=== PATIENT | male | born 1990 | race Caucasian/White ===

== ENCOUNTER 2024-03-23 06:51 | Inpatient (IN) | payer SELFPAY ==
[2024-03-23] VITALS (10 sets, daily range): BP systolic 116–132; BP diastolic 70–85; PULSE 60–108; TEMP 36.5–36.9; O2SAT 89–96; BMI 24.4; BMI 25.7
--- NOTE | 2024-03-23 07:24 | XR_ITS ---
The [address] [address] Patient Name: YUNIER ELAINE MRN: [id number] date: 1990 Sex: M Assigned Patient Location: ER Current Patient Location: ER Accession/Order Number: [id number] Exam Date: 03/23/2024 07:35 Report Date: 03/23/2024 08:07 At the request of: TAJ ANDERSON Procedure: XR chest 1V EXAM: XR chest 1V INDICATION: SOB. COMPARISON: 11/15/2021 TECHNIQUE: Single frontal view of the chest FINDINGS: Normal cardiomediastinal contours. Normal pulmonary vasculature. Left midlung 3.0 cm nodular opacity and surrounding airspace opacities. Clear right lung. No pleural effusion or pneumothorax. No acute osseous abnormality. XR/XR chest 1V IMPRESSION: Left mid lung nodular and airspace opacities most compatible with pneumonia. Recommend short-term follow-up imaging to confirm resolution. Electronically authenticated by: OMID BLANCO Date: 03/23/2024 08:07
--- NOTE | 2024-03-23 07:24 | ECG_ITS ---
The [facility] Test Date: 2024-03-23 Pat Name: YUNIER ELAINE Department: Room: - Gender: Male [employer] Operator Helper: : 1990 Requested By: Order Number: [id number] Reading MD: FLACA MARINELLI Measurements Intervals [place] Rate: 87 P: 76 DE: 160 QRS: 65 QRSD: 80 T: 67 QT: 336 QTc: 381 Interpretive Statements 1100 Sinus rhythm [address] elevation [address] & [place] abnormality 9130 borderline ECG Compared to ECG 11/15/2021 21:02:12 ST (T wave) deviation now present Early repolarization no longer present Electronically Signed On 03-24-2024 14:06:07 EST by FLACA MARINELLI
--- NOTE | 2024-03-23 07:25 | ED_ITS ---
HPI HPI - General Adult General Chief complaint: Shortness of Breath/Dyspnea Stated complaint: SHORTNESS OF BREATH Time Seen by Provider: 03/23/24 07:24 Source: patient and family Mode of arrival: walk-in Limitations: no limitations History of Present Illness HPI narrative: 33-year-old male presents for cough and shortness of breath. He is not coughing up much phlegm. He has been sick for about a week and was seen at an urgent care. They put him on a decongestant and a steroid and tested for COVID and influenza which were negative. He has not gotten better. He had an O2 sat of 90% upon presentation. No known fever or hemoptysis. Related Data Allergies Allergy/AdvReac Type Severity Reaction Status Date / Time No Known Drug Allergies Allergy Verified 03/23/24 07:11 Opioid HPI Opioid Management Most Recent Opioid Data: No Data to Display Review of Systems ROS Narrative A ten point review of systems is negative except as noted above. PFSH PFSH Social History Little interest or pleasure in doing things: not at all Feeling down, depressed, or hopeless: not at all Exam Narrative Exam Narrative: Nurses note and vital signs reviewed and patient is not hypoxic. General: The patient appears in no acute respiratory distress and he appears moderately dyspneic Skin: Warm, dry, no pallor noted. There is no rash noted. Head: Normocephalic, atraumatic Eye: Normal conjunctiva, no drainage Ears, Nose, Mouth, and Throat: oral mucosa is moist. Nares patent. Cardiovascular: Regular Rate and Rhythm Respiratory: Bilateral rhonchi throughout Back: non-tender GI: Soft and nontender Musculoskeletal: The patient has no evidence of calf tenderness, no pitting edema, symmetrical pulses noted bilaterally Neurological: A&O, normal speech Psychiatric: Cooperative Constitutional Vital Signs, click to edit/add: Last Vital Signs Temp 98 F 03/23/24 07:08 Pulse 81 03/23/24 07:52 Resp 18 03/23/24 07:08 BP 130/85 03/23/24 07:08 Pulse Ox 96 03/23/24 07:52 O2 Del Method Nasal Cannula 03/23/24 07:52 O2 Flow Rate 2 03/23/24 07:52 Course Vital Signs Vital signs: Vital Signs Temperature 98 F 03/23/24 07:08 Pulse Rate 89 03/23/24 07:08 Respiratory Rate 18 03/23/24 07:08 Blood Pressure 130/85 03/23/24 07:08 Pulse Oximetry 92 L 03/23/24 07:08 Oxygen Delivery Method Room Air 03/23/24 07:08 Temperature 98 F 03/23/24 07:08 Pulse Rate 81 03/23/24 07:52 Respiratory Rate 18 03/23/24 07:08 Blood Pressure 130/85 03/23/24 07:08 Pulse Oximetry 96 03/23/24 07:52 Oxygen Delivery Method Nasal Cannula 03/23/24 07:52 Oxygen Delivery Flow Rate 2 03/23/24 07:52 Medical Decision Making MDM Narrative Medical decision making narrative: Pneumonia is identified on his chest x-ray. He has been hypoxemic here, running 89 to 90% on 2 L. Blood cultures were obtained and other blood work including lactic acid is pending. He was given IV Rocephin and Zithromax and is being admitted. He was also given IV Solu-Medrol and aerosol treatment. Treatment diagnosis and disposition were discussed with the patient. Differential Diagnosis Differential Diagnosis: Pneumonia, COVID, influenza, URI Lab Data Lab results reviewed: Yes I reviewed the patient's lab results Labs: Lab Results 03/23/24 Range/Units 08:38 WBC 16.1 H (4.0-11.0) 10^3/uL RBC 4.80 (4.70-6.10) 10^6/uL Hgb 14.9 (14.0-18.0) g/dL Hct 42.8 (42.0-54.0) % MCV 89.2 (80.0-94.0) fL MCH 31.0 (25.9-34.0) pg MCHC 34.8 (29.9-35.2) g/dL RDW 14.4 (11.0-15.0) % Plt Count 305 (150-450) 10^3/uL MPV 9.5 (9.5-13.5) fL Neut % (Auto) 73.7 (43.0-75.0) % Lymph % (Auto) 13.8 L (20.5-60.0) % [place] % (Auto) 8.0 (1.7-12.0) % Eos % (Auto) 1.1 (0.9-7.0) % Baso % (Auto) 0.4 (0.2-2.0) % Neut # (Auto) 11.8 H (1.4-6.5) 10^3/uL Lymph # (Auto) 2.2 (1.2-3.8) 10^3/uL [place] # (Auto) 1.3 H (0.3-0.8) 10^3/uL Eos # (Auto) 0.2 (0.0-0.7) 10^3/uL Baso # (Auto) 0.1 (0.0-0.1) 10^3/uL Abs Immat Gran (auto) 0.49 H (0.00-0.03) 10^3/uL Imm/Tot Granulo (auto) 3.0 H (0.0-0.5) % Imaging Data Chest x-ray: Radiologist's impression: ITS Impressions Chest X-Ray 03/23/24 07:24 IMPRESSION: Left mid lung nodular and airspace opacities most compatible with pneumonia. Recommend short-term follow-up imaging to confirm resolution. Electronically authenticated by: OMID BLANCO Date: 03/23/2024 08:07 ECG Data Attestation: I personally reviewed and interpreted this ECG as follows: (EKG on my interpretation shows sinus rhythm with rate of 87 and no acute change.) Critical Care Time Critical Care Time Critical Care Time: Yes Total Critical Care Time: 35 Attestation: Due to the high probability of sudden and clinically significant deterioration in the patient's condition he/she required the highest level of my preparedness to intervene urgently I provided critical care time including documentation time, medication orders and management, reevaluation, vital sign assessment, ordering and reviewing of lab tests, ordering and reviewing of x-ray studies, and admission orders. Aggregate critical care time is 35 minutes including only time during which I was engaged in work directly related to his/her care and did not include time spent treating other patients simultaneously. Discharge Plan Discharge Chief Complaint: Shortness of Breath/Dyspnea Clinical Impression: Pneumonia, Hypoxemia Patient Disposition: Admitted As Inpatient Time of Disposition Decision: 08:41 Condition: Good
[2024-03-23] MEDS: ALBUTEROL SULFATE 2.5 MG/3 ML VIAL NEB IH (07:51)
[2024-03-23] MEDS: METHYLPREDNISOLONE SOD SUCC PF 125 MG/2 ML VIAL IVP ×3 (08:09→20:12)
[2024-03-23] MEDS: CEFTRIAXONE 1,000 MG in 0.9 % SODIUM CHLORIDE 50 ML 100 MG IV (08:53)
[2024-03-23 09:08] LABS: Basophils Absolute Auto 0.1 10^3/uL (0.0-0.1); Basophils Percent Auto 0.4 % (0.2-2.0); Eosinophils Absolute Auto 0.2 10^3/uL (0.0-0.7); Eosinophils Percent Auto 1.1 % (0.9-7.0); Hematocrit 42.8 % (42.0-54.0); Hemoglobin 14.9 g/dL (14.0-18.0); Immature Granulocytes Abs Auto 0.49 10^3/uL (0.00-0.03); Lymphocytes Absolute Auto 2.2 10^3/uL (1.2-3.8); Lymphocytes Percent Auto 13.8 % (20.5-60.0); Mean Corpuscular HGB Conc 34.8 g/dL (29.9-35.2); Mean Corpuscular Volume 89.2 fL (80.0-94.0); Mean Platelet Volume 9.5 fL (9.5-13.5); Monocytes Absolute Auto 1.3 10^3/uL (0.3-0.8); Neutrophils Absolute Auto 11.8 10^3/uL (1.4-6.5); Neutrophils Percent Auto 73.7 % (43.0-75.0); Platelet Count 305 10^3/uL (150-450); Red Cell Distribution Width 14.4 % (11.0-15.0); White Blood Count 16.1 10^3/uL (4.0-11.0)
[2024-03-23 09:19] LABS: Influenza Virus A Antigen Negative; Influenza Virus B Antigen Negative; Internal Control Within Normal Limits; SARS-CoV-2 Ag NEGATIVE (NEGATIVE)
[2024-03-23 09:20] LABS: Anion Gap 11.6; Calcium 8.7 mg/dL (8.5-10.1); Carbon Dioxide 31.5 mmol/L (21.0-32.0); Chloride 103 mmol/L (98-107); Estimated GFR (African America >60 (>=60 mL/min/1.73m^2); Estimated GFR (Non-African Ame >60 (>=60 mL/min/1.73m^2); Glucose 98 mg/dL (74-106); Potassium 4.1 mmol/L (3.5-5.1); Sodium 142 mmol/L (136-145)
[2024-03-23] MEDS: AZITHROMYCIN 500 MG in 0.9 % SODIUM CHLORIDE 250 ML 250 MG IV (09:23)
[2024-03-23 09:24] LABS: Lactate/Lactic Acid 1.5 mmol/L (0.4-2.0)
--- NOTE | 2024-03-23 11:16 | P.HP_ITS ---
HPI H&P: HPI History of Present Illness Chief complaint: SOB, PNEUMONIA, HYPOXEMIA Narrative: She was seen and evaluated in the urgent care approximately 3 days ago. Tested for COVID and flu, those were negative, patient was given steroids and cough medicine, patient continued have increasing cough and shortness of breath. Presented to the emergency room here with acute hypoxic respiratory failure secondary to left lower lobe pneumonia. Resulting in acute exacerbation of COPD I saw patient up with the medical surgical floor, he was resting comfortably in bed, cough persisting throughout the evaluation. Opioid HPI Opioid Management Most Recent Pain and Opioid Data: Last Pain Assessment 03/23/24 12:31 Last ORT Total Score 15 03/23/24 10:26 03/23/24 Last ORT Risk Category High Risk 03/23/24 10:26 03/23/24 Review of Systems ROS Status of ROS 10 or more systems reviewed and unremark able except as noted in history and below Constitutional Denies: fever PFSH PFSH Medical History (Updated 03/23/24 @ 10:38 by Kaye Thompson) Asthma ?J45.909 - Unspecified asthma, uncomplicated (ICD-10) Family History (Updated 03/23/24 @ 10:44 by Kaye Thompson) Grandfather Family history of bone cancer Other Family history of Alzheimer's disease Family history of COPD (chronic obstructive pulmonary disease) Family history of leukemia Family history of lung cancer Family history of myocardial infarction Family history of prostate cancer Social History (Updated 03/23/24 @ 10:44 by Kaye Thompson) Within the past year, how often did you have a drink containing alcohol: never Within the past year, how often did you have six or more drinks on one occasion: never Score interpretation: A score less than 4 is consistent with normal alcohol consumption. Smoking status: Current every day smoker Do you use any of these nicotine containing products: other Nicotine containing products detail: a Second hand tobacco smoke exposure: Yes Non-prescribed substance use: denies use and amphetamines/methamphetamines Previous occupational history: construction Known occupational exposures/hazards: No Highest level of school completed/degree received: high school graduate Do you want help with school or training: No Are you now , , , , never or living with a partner: In a typical week, how many times do you talk on the telephone with family, friends, or neighbors: 3 or more times per week How often do you get together with friends or relatives: 3 or more times per week How often do you attend cheondoism or scientology services: never Do you belong to any clubs or organizations such as cheondoism groups unions, N[employer] or athletic groups, or school groups: no Total score: 2 Score interpretation: A score of greater than or equal to 2 indicates the lowest level of social isolation. Little interest or pleasure in doing things: not at all Feeling down, depressed, or hopeless: not at all Feel stressed/tense/nervous/anxious/difficulty sleeping: not at all Due to disability, difficulty making decisions: No Do you think of yourself as: straight/heterosexual Gender Identity: male Meds Home Medications and Allergies Home Medications ?Medication ?Instructions ?Recorded ?Confirmed ?Type No Known Home Medications 03/23/24 03/23/24 History Allergies Allergy/AdvReac Type Severity Reaction Status Date / Time No Known Drug Allergies Allergy Verified 03/23/24 07:11 Exam Constitutional Vital Signs, click to edit/add: Last Vital Signs Temp 98.4 F 03/23/24 10:26 Pulse 100 H 03/23/24 10:26 Resp 18 03/23/24 10:26 BP 132/80 03/23/24 10:26 Pulse Ox 92 L 03/23/24 10:26 O2 Del Method Nasal Cannula 03/23/24 10:26 O2 Flow Rate 2 03/23/24 10:26 Documenting provider has reviewed patient's vital signs: yes Common normals: apparent distress (Respiratory distress secondary to cough) Chest Common normals: inspection of chest normal Respiratory Common normals: abnormal respiratory effort (Secondary to cough) Effort & inspection: actively coughing Auscultation: rhonchi, wheezes and egophony (Left middle lobe) GI Common normals: Normal to inspection, nondistended, normoactive bowel sounds present Back & Pelvis Common normals: no CVA tenderness Extremity Common normals: normal to inspection Results Labs Labs: Short CBC 03/23/24 Range/Units 08:38 WBC 16.1 H (4.0-11.0) 10^3/uL Hgb 14.9 (14.0-18.0) g/dL Hct 42.8 (42.0-54.0) % Plt Count 305 (150-450) 10^3/uL BMP 03/23/24 08:38 Sodium 142 Potassium 4.1 Chloride 103 Carbon Dioxide 31.5 BUN 23.0 H Creatinine 0.96 Glucose 98 Calcium 8.7 Assessment and Plan Assessment and Plan (1) Hypoxemia: (2) Pneumonia: Plan Admission findings: Acute hypoxia with O2 sat of 86%, sinus tachycardia's, leukocytosis secondary to left lower lobe pneumonia causing an acute exacerbation of COPD Acute exacerbation of COPD secondary to left lower lobe pneumonia-aerosols, steroids, antibiotics. Try to obtain sputum culture. Sinus tachycardia likely secondary to above-monitor closely Admission status: Patient treated with IV antibiotics, aerosols, steroids, he does have significant hypoxia will make patient inpatient status secondary to the severity of his hypoxia. Failed outpatient treatment. Medically necessary treatment likely to span 2 midnights.
--- NOTE | 2024-03-23 14:25 | RESP.RT ---
done in ER see documentation from earlier today
--- NOTE | 2024-03-23 14:28 | RESP.RT ---
to be done soon
[2024-03-23] MEDS: ACETAMINOPHEN 500 MG TABLET 1000 MG PO (17:38)
[2024-03-24] VITALS (27 sets, daily range): BP systolic 129–151; BP diastolic 79–100; PULSE 84–121; TEMP 36.6–37.1; O2SAT 86–100
[2024-03-24] MEDS: METHYLPREDNISOLONE SOD SUCC PF 125 MG/2 ML VIAL IVP ×4 (01:33→20:44)
[2024-03-24] MEDS: ALBUTEROL SULFATE 2.5 MG/3 ML VIAL NEB IH ×5 (03:56→20:34)
[2024-03-24] MEDS: BENZONATATE 100 MG CAPSULE 200 MG PO (04:33)
[2024-03-24] MEDS: ACETAMINOPHEN 500 MG TABLET 1000 MG PO ×2 (04:34→14:40)
--- NOTE | 2024-03-24 06:23 | CT_ITS ---
The [address] [address] Patient Name: YUNIER ELAINE MRN: [id number] date: 1990 Sex: M Assigned Patient Location: ICU Current Patient Location: ICU Accession/Order Number: [id number] Exam Date: 03/24/2024 07:00 Report Date: 03/24/2024 07:41 At the request of: FLACA MARINELLI Procedure: CT angio chest EXAM: CT angio chest , 03/24/2024 HISTORY: acute hypoxia COMPARISON: Previous x-rays from 03/23/2024 and 2021. TECHNIQUE: CT scan of the chest was performed following are mL of intravenous Omnipaque 350 iodine contrast with angiogram protocol. Coronal, sagittal including MIP and 3-D constructions were performed. Dose reduction techniques were achieved by using automated exposure control and/or adjustment of mA and/or kV according to patient size and/or use of iterative reconstruction technique. FINDINGS: The main pulmonary artery, right and left pulmonary arteries, bilateral lobar and segmental pulmonary arteries are patent and show no filling defect to suggest pulmonary thromboembolism. The lung windows demonstrate patchy infiltrates in the lingula. Minimal bilateral dependent atelectasis. The images are partially limited by motion/breathing artifacts. Bilateral mild prominence of the bronchovascular markings, with lower lobe bronchial wall thickening. The central tracheobronchial airways are patent. The mediastinal windows demonstrate mild enlargement of the hilar lymph nodes bilaterally, likely reactive. Patent thoracic aorta and great vessels. No pleural or pericardial effusion. Unremarkable thyroid gland. Esophagus is nondilated. The bone windows demonstrate no acute osseous findings. Scans through the upper abdomen are unremarkable. CT/CT angio chest IMPRESSION: 1. Infiltrate in the lingula, and bilateral bronchial wall thickening and plugging in the lower lobes with basal atelectasis. 2. Mild enlargement of bilateral hilar lymph nodes, likely reactive. Electronically authenticated by: JEREMIAS BLAKE Date: 03/24/2024 07:41
[2024-03-24 06:52] LABS: Hematocrit 43.9 % (42.0-54.0); Hemoglobin 14.6 g/dL (14.0-18.0); Mean Corpuscular HGB Conc 33.3 g/dL (29.9-35.2); Mean Corpuscular Hemoglobin 28.5 pg (25.9-34.0); Mean Corpuscular Volume 85.6 fL (80.0-94.0); Mean Platelet Volume 9.1 fL (9.5-13.5); Platelet Count 345 10^3/uL (150-450); Red Blood Count 5.13 10^6/uL (4.70-6.10); Red Cell Distribution Width 13.7 % (11.0-15.0); White Blood Count 29.8 10^3/uL (4.0-11.0)
[2024-03-24 07:05] LABS: Anion Gap 13.3; BUN Creatinine Ratio 17.8; Carbon Dioxide 29.1 mmol/L (21.0-32.0); Chloride 103 mmol/L (98-107); Estimated GFR (African America >60 (>=60 mL/min/1.73m^2); Estimated GFR (Non-African Ame >60 (>=60 mL/min/1.73m^2); Glucose 167 mg/dL (74-106); Potassium 4.4 mmol/L (3.5-5.1); Sodium 141 mmol/L (136-145)
[2024-03-24 07:13] LABS: Lymphocytes Absolute Manual 1.49 10^3/uL (1.20-3.80); Metamyelocytes Absolute Manual 0.29; Monocytes Absolute Manual 1.19 10^3/uL (0.30-0.80); Segmented Neut Absolute Manual 26.82 10^3/uL (1.4-6.5)
[2024-03-24 07:27] LABS: Alanine Aminotransferase 36 U/L (16-63); Albumin Globulin Ratio 0.7; Albumin Level 2.8 g/dL (3.4-5.0); Alkaline Phosphatase 93 U/L (46-116); Aspartate Amino Transferase 14 U/L (15-37); Bilirubin Direct 0.1 mg/dL (0.0-0.2); Bilirubin Total 0.2 mg/dL (0.2-1.0); Globulin 4.2 g/dL
--- NOTE | 2024-03-24 07:28 | PC.NURSE ---
Patient was transferred to ICU by bed and his belongings. Patient is on Vaportherm. Report given to Christiane KHALIL.
--- NOTE | 2024-03-24 07:35 | PC.NURSE ---
Patient was transferred to ICU by bed with his belongings. RT placed Patient on Vapothem. Report given to Christiane KHALIL
[2024-03-24 07:42] LABS: ABG PCO2 41.3 mmHg (35.0-45.0); Allen Test POSITIVE (POSITIVE); Base Excess ABG 4.9 mmol/L (-2.0-2.0); Fractionated Inspired Oxygen 50 %; HCO3 ABG 28.9 mmol/L (22.0-26.0); Liters per Minute 40; O2 Mode VAPO; Oxygen Saturation ABG 92.1 %; pH ABG 7.452 (7.350-7.450)
[2024-03-24 07:43] LABS: PO2 ABG 58.5 mmHg (80.0-100.0); Puncture Site R.RAD
[2024-03-24] MEDS: AZITHROMYCIN 500 MG in 0.9 % SODIUM CHLORIDE 250 ML 250 MG IV (08:57)
[2024-03-24] MEDS: PIPERACILLIN SODIUM/TAZOBACTAM 3.375 GM in 0.9 % SODIUM CHLORIDE 50 ML IV ×2 (09:59→17:21)
--- NOTE | 2024-03-24 11:45 | P.PN_ITS ---
Progress Note: Subjective Subjective Interval history: Patient was significant deterioration overnight. Had increasing shortness of breath and required Vapotherm. Transferred back to the intensive care unit due to deterioration status. Exam Constitutional Vital Signs, click to edit/add: Last Vital Signs Temp 97.9 F 03/24/24 05:55 Pulse 110 H 03/24/24 10:05 Resp 18 03/24/24 06:31 BP 148/86 H 03/24/24 05:55 Pulse Ox 96 03/24/24 08:09 O2 Del Method Vapotherm 03/24/24 08:09 O2 Flow Rate 40 03/24/24 08:09 FiO2 50 03/24/24 08:09 Documenting provider has reviewed patient's vital signs: yes Common normals: apparent distress (Mild to moderate respiratory distress) Chest Common normals: inspection of chest abnormal Respiratory Common normals: abnormal respiratory effort (Secondary to cough) and use of accessory muscles Effort & inspection: actively coughing and uses accessory muscles Auscultation: rhonchi (Worse than previous day.), wheezes and egophony (Now in bilateral lower lobes) Cardio Common normals: regular rhythm; irregular rate Rate: tachycardic GI Common normals: Normal to inspection, nondistended, normoactive bowel sounds present Back & Pelvis Common normals: no CVA tenderness Extremity Common normals: normal to inspection Progress Note: Objective Labs Labs: Short CBC 03/24/24 Range/Units 06:46 WBC 29.8 H (4.0-11.0) 10^3/uL Hgb 14.6 (14.0-18.0) g/dL Hct 43.9 (42.0-54.0) % Plt Count 345 (150-450) 10^3/uL BMP 03/24/24 06:46 Sodium 141 Potassium 4.4 Chloride 103 Carbon Dioxide 29.1 BUN 18.0 Creatinine 1.01 Glucose 167 H Calcium 9.0 Liver Function 03/24/24 Range/Units 06:46 Total Bilirubin 0.2 (0.2-1.0) mg/dL Direct Bilirubin 0.1 (0.0-0.2) mg/dL AST 14 L (15-37) U/L ALT 36 (16-63) U/L Alkaline Phosphatase 93 (46-116) U/L Albumin 2.8 L (3.4-5.0) g/dL Progress Note: A&P Assessment and Plan (1) Hypoxemia: (2) Pneumonia: Plan Admission findings: Acute hypoxia with O2 sat of 86%, sinus tachycardia's, leukocytosis secondary to left lower lobe pneumonia causing an acute exacerbation of COPD Acute exacerbation of COPD secondary to left lower lobe pneumonia-leukocytosis deteriorated, condition deteriorated with now with acute hypoxic respiratory failure requiring upper level doses of supplemental oxygen via Vapotherm. CTA completed which did not show any pulmonary embolism but bilateral lower lobe infiltrates and moderate mucus production. Continue with steroids, adjusted antibiotics. Sputum culture was obtained. Will try vest treatments. Still suspecting progression of pneumonia despite initiation of treatment, other considerations would be ARDS early Sinus tachycardia likely secondary to above-still elevated further today. Again likely secondary to the above EKG with inferior wall mild ST elevation-will check patient's BNP and high- sensitivity troponin. Insomnia-try doxepin, try to limit respiratory suppression Hyperglycemia secondary to steroids-continue steroids. Admission status: Patient treated with IV antibiotics, aerosols, steroids, he does have significant hypoxia will make patient inpatient status secondary to the severity of his hypoxia. Failed outpatient treatment. Medically necessary treatment likely to span 2 midnights. ?
[2024-03-24 14:39] LABS: Troponin I High Sensitivity 4.1 pg/mL (4.0-76.1)
[2024-03-24] MEDS: GUAIFENESIN 600 MG TAB.ER.12H 1200 MG PO ×2 (15:00→20:44)
[2024-03-24] MEDS: CALCIUM CARBONATE 500 MG (200MG ELEMENTAL) TAB CHEW PO (21:28)
--- NOTE | 2024-03-24 23:22 | PC.NURSE ---
This RN took over for Sally KHALIL at 2300. Introduced self to patient, checked VS and performed an assessment. Pt on 40L 40% Vapotherm. Pt declines needs at this time. No distress noted. Bed in low position with wheels locked. Call light within reach.
[2024-03-25] VITALS (35 sets, daily range): BP systolic 121–136; BP diastolic 80–89; PULSE 66–112; TEMP 36.6–36.8; O2SAT 90–98
[2024-03-25] MEDS: METHYLPREDNISOLONE SOD SUCC PF 125 MG/2 ML VIAL IVP (01:04)
[2024-03-25] MEDS: PIPERACILLIN SODIUM/TAZOBACTAM 3.375 GM in 0.9 % SODIUM CHLORIDE 50 ML IV ×3 (01:06→17:02)
[2024-03-25 06:00] LABS: Hematocrit 37.3 % (42.0-54.0); Hemoglobin 13.9 g/dL (14.0-18.0); Mean Corpuscular HGB Conc 37.3 g/dL (29.9-35.2); Mean Corpuscular Hemoglobin 33.4 pg (25.9-34.0); Mean Corpuscular Volume 89.7 fL (80.0-94.0); Mean Platelet Volume 9.9 fL (9.5-13.5); Platelet Count 345 10^3/uL (150-450); Red Blood Count 4.16 10^6/uL (4.70-6.10); Red Cell Distribution Width 15.2 % (11.0-15.0)
[2024-03-25 06:13] LABS: White Blood Count 36.7 10^3/uL (4.0-11.0)
[2024-03-25 06:27] LABS: Lymphocytes Absolute Manual 1.46 10^3/uL (1.20-3.80); Monocytes Absolute Manual 0.73 10^3/uL (0.30-0.80); Segmented Neut Absolute Manual 34.49 10^3/uL (1.4-6.5)
[2024-03-25 06:28] LABS: Anion Gap 13.9; BUN Creatinine Ratio 22.7; Calcium 9.2 mg/dL (8.5-10.1); Carbon Dioxide 27.5 mmol/L (21.0-32.0); Chloride 103 mmol/L (98-107); Estimated GFR (African America >60 (>=60 mL/min/1.73m^2); Estimated GFR (Non-African Ame >60 (>=60 mL/min/1.73m^2); Glucose 159 mg/dL (74-106); Potassium 4.4 mmol/L (3.5-5.1); Sodium 140 mmol/L (136-145)
[2024-03-25] MEDS: ALBUTEROL SULFATE 2.5 MG/3 ML VIAL NEB IH (07:12)
--- NOTE | 2024-03-25 07:59 | P.PLCN_ITS ---
History of Present Illness History of Present Illness Consult date: 03/25/24 Reason for consult: pneumonia Chief complaint: SOB, PNEUMONIA, HYPOXEMIA Narrative: 33yo male presents with dyspnea. Patient has a history of asthma which she claims he outgrew. He is a 1 pack-a-day smoker for the past 18 years. States over the past week, he developed worsening breathing. He was more short of breath, chest congestion but difficulty expectorating at times. No hemoptysis. Also felt feverish (never checked his temperatures), chills, and general fatigue. He believes he was ill for a week before; he admitted going to an urgent care center and was prescribed prednisone which helped some. His symptoms worsening came to the hospital. Chest CT noted no pulmonary embolism but a lingular infiltrate along with bilateral lower lobe mucus plugging and bilateral hilar lymphadenopathy suspected to be reactive. He is tachycardic with leukocytosis on admission requiring supplemental oxygen. Presentation is consistent with severe sepsis. COVID and influenza were negative. Overall, he states he is feeling better. Review of Systems ROS Status of ROS 10 or more systems reviewed and unremark able except as noted in history and below [facility] Medical History (Updated 03/25/24 @ 08:04 by Jonathan Salomon DO) Asthma ?J45.909 - Unspecified asthma, uncomplicated (ICD-10) Family History (Updated 03/23/24 @ 10:44 by Kaye Thompson) Grandfather Family history of bone cancer Other Family history of Alzheimer's disease Family history of COPD (chronic obstructive pulmonary disease) Family history of leukemia Family history of lung cancer Family history of myocardial infarction Family history of prostate cancer Social History (Updated 03/23/24 @ 13:47 by Daniel Goss MD) Within the past year, how often did you have a drink containing alcohol: never Within the past year, how often did you have six or more drinks on one occasion: never Score interpretation: A score less than 4 is consistent with normal alcohol consumption. Smoking status: Current every day smoker Do you use any of these nicotine containing products: other Nicotine containing products detail: a Second hand tobacco smoke exposure: Yes Non-prescribed substance use: denies use and amphetamines/methamphetamines Previous occupational history: construction Known occupational exposures/hazards: No Highest level of school completed/degree received: high school graduate Do you want help with school or training: No Are you now , , , , never or living with a partner: In a typical week, how many times do you talk on the telephone with family, friends, or neighbors: 3 or more times per week How often do you get together with friends or relatives: 3 or more times per week How often do you attend mu-ism or pentecostal services: never Do you belong to any clubs or organizations such as mu-ism groups unions, fraternal or athletic groups, or school groups: no Total score: 2 Score interpretation: A score of greater than or equal to 2 indicates the lowest level of social isolation. Little interest or pleasure in doing things: not at all Feeling down, depressed, or hopeless: not at all Feel stressed/tense/nervous/anxious/difficulty sleeping: not at all Due to disability, difficulty making decisions: No Do you think of yourself as: straight/heterosexual Gender Identity: male Meds Home Medications and Allergies Home Medications ?Medication ?Instructions ?Recorded ?Confirmed ?Type No Known Home Medications 03/23/24 03/23/24 History Allergies Allergy/AdvReac Type Severity Reaction Status Date / Time No Known Drug Allergies Allergy Verified 03/23/24 07:11 Exam Constitutional Vital Signs, click to edit/add: Last Vital Signs Temp 98 F 03/25/24 05:00 Pulse 89 03/25/24 07:14 Resp 22 H 03/25/24 07:14 BP 133/81 03/25/24 05:00 Pulse Ox 95 03/25/24 07:14 O2 Del Method Nasal Cannula 03/25/24 07:14 O2 Flow Rate 4 03/25/24 07:14 FiO2 40 03/25/24 05:00 Documenting provider has reviewed patient's vital signs: yes Other: Patient appears ill in my opinion; diaphoretic, tachycardic, mild tachypnea though does not appear in respiratory distress HENMT Other: Wearing O2 per nasal cannula Chest Common normals: inspection of chest normal and palpation of chest normal Respiratory Other: Mild tachypnea with rate 22, but does not appear in distress. Breaths are shallow. He does have some bibasilar crackles more on the left than the right. No wheezes. Cardio Other: Tachycardic with a regular rhythm GI Inspection: normal to inspection Extremity Common normals: normal to inspection Neuro Motor exam: no tremor noted and no fasciculations Psych Attitude: calm Activity/motor behavior: appropriate eye contact Speech: normal speech Results Laboratory Findings ABG, PT/INR, D-dimer: ABG ABG pH 7.452 (7.350-7.450) H 03/24/24 07:35 ABG pCO2 41.3 mmHg (35.0-45.0) 03/24/24 07:35 ABG pO2 58.5 mmHg (80.0-100.0) L* 03/24/24 07:35 ABG O2 Saturation 92.1 % 03/24/24 07:35 Abnormal lab findings: Abnormal Labs 03/23/24 03/24/24 03/24/24 08:38 06:46 07:35 WBC 16.1 H 29.8 H RBC Hgb Hct MCHC RDW MPV 9.1 L Lymph % (Auto) 13.8 L Neut # (Auto) 11.8 H [place] # (Auto) 1.3 H Abs Immat Gran (auto) 0.49 H Seg Neuts % (Manual) 90.0 H Lymphocytes % (Manual) 5.0 L Eosinophils % (Manual) 0.0 L Basophils % (Manual) 0.0 L Imm/Tot Granulo (auto) 3.0 H Neutrophils # (Manual) 26.82 H Monocytes # (Manual) 1.19 H ABG pH 7.452 H ABG pO2 58.5 L* ABG HCO3 28.9 H ABG Base Excess 4.9 H BUN 23.0 H Glucose 167 H AST 14 L Albumin 2.8 L 03/25/24 04:57 WBC 36.7 H* RBC 4.16 L Hgb 13.9 L Hct 37.3 L MCHC 37.3 H RDW 15.2 H MPV Lymph % (Auto) Neut # (Auto) [place] # (Auto) Abs Immat Gran (auto) Seg Neuts % (Manual) 94.0 H Lymphocytes % (Manual) 4.0 L Eosinophils % (Manual) 0.0 L Basophils % (Manual) 0.0 L Imm/Tot Granulo (auto) Neutrophils # (Manual) 34.49 H Monocytes # (Manual) ABG pH ABG pO2 ABG HCO3 ABG Base Excess BUN 22.0 H Glucose 159 H AST Albumin Assessment and Plan Assessment and Plan (1) Community acquired pneumonia: Assessment and Plan: 1. Community-acquired pneumonia, nidus is in the lingula, with associated bilateral hilar lymphadenopathy. Overall presentation appears consistent with bacterial pneumonia. Suspect this was preceded by a viral pneumonia 2 weeks ago per his history. Patient seems to be clinically improving, though still remains ill. Will need follow-up imaging to document stability. 2. Severe sepsis secondary to the above. Presentation is consistent with severe sepsis with tachycardia tachypnea leukocytosis and hypoxic respiratory failure. Continue supportive care. 3. Acute exacerbation of mild intermittent asthma. Patient was previously asymptomatic from asthma standpoint, but this acute illness has provoked underlying asthma. Continue with bronchodilators, changing to scheduled; also changing albuterol to leave albuterol secondary to the consistent tachycardia (patient was approaching 120 this morning on telemetry) and add ipratropium for synergy. May need to consider discharge on ICS/LABA such as Symbicort for short-term use. 4. Acute hypoxic respiratory failure. Secondary to above. He still is requiring 4 L minute of supplemental O2. Baseline is room air. 4. Cigarette/nicotine abuse. Patient smokes 1 pack a day for the past 18 years. Patient was counseled on importance of smoking cessation. Qualifiers: Laterality: left Lung location: upper lobe of lung Qualified Code(s): J18.9 - Pneumonia, unspecified organism Plan Patient states he is feeling better at this current time. I am going out of town this following week. If the patient decompensates, he will need to be transferred to a tertiary care center for pulmonary management.
--- NOTE | 2024-03-25 08:34 | P.PN_ITS ---
Progress Note: Subjective Subjective Interval history: Feels better with his breathing than previous day. Able to be weaned down to 4 L by nasal cannula as opposed to the Vapotherm from yesterday morning Exam Constitutional Vital Signs, click to edit/add: Last Vital Signs Temp 98 F 03/25/24 05:00 Pulse 89 03/25/24 07:14 Resp 22 H 03/25/24 07:14 BP 133/81 03/25/24 05:00 Pulse Ox 95 03/25/24 07:14 O2 Del Method Nasal Cannula 03/25/24 07:14 O2 Flow Rate 4 03/25/24 07:14 FiO2 40 03/25/24 05:00 Documenting provider has reviewed patient's vital signs: yes Common normals: apparent distress (Mild to moderate respiratory distress) Chest Common normals: inspection of chest abnormal Respiratory Common normals: no use of accessory muscles; abnormal respiratory effort (Secondary to cough) Effort & inspection: actively coughing; does not use accessory muscles Auscultation: rhonchi (Worse than previous day.); no wheezes and no egophony (Egophony resolved) Cardio Common normals: regular rhythm; irregular rate Rate: tachycardic GI Common normals: Normal to inspection, nondistended, normoactive bowel sounds present Back & Pelvis Common normals: no CVA tenderness Extremity Common normals: normal to inspection Progress Note: Objective Labs Labs: Short CBC 03/25/24 Range/Units 04:57 WBC 36.7 H* (4.0-11.0) 10^3/uL Hgb 13.9 L (14.0-18.0) g/dL Hct 37.3 L (42.0-54.0) % Plt Count 345 (150-450) 10^3/uL BMP 03/25/24 04:57 Sodium 140 Potassium 4.4 Chloride 103 Carbon Dioxide 27.5 BUN 22.0 H Creatinine 0.97 Glucose 159 H Calcium 9.2 Progress Note: A&P Assessment and Plan (1) Community acquired pneumonia: Qualifiers: Laterality: left Lung location: upper lobe of lung Qualified Code(s): J18.9 - Pneumonia, unspecified organism (2) Hypoxemia: (3) Pneumonia: Plan Admission findings: Acute hypoxia with O2 sat of 86%, sinus tachycardia's, leukocytosis secondary to left lower lobe pneumonia causing an acute exacerbation of COPD Acute exacerbation of COPD secondary to left lower lobe pneumonia-leukocytosis elevated again today. Will discuss care with pulmonology. Overall is improved today. Sinus tachycardia likely secondary to above-still elevated further today. Adjusting medications. EKG with inferior wall mild ST elevation-BNP and high-sensitivity troponin were normal Insomnia-try doxepin, try to limit respiratory suppression Hyperglycemia secondary to steroids-continue steroids. Admission status: Patient treated with IV antibiotics, aerosols, steroids, he does have significant hypoxia will make patient inpatient status secondary to the severity of his hypoxia. Failed outpatient treatment. Medically necessary treatment likely to span 2 midnights. ?
--- NOTE | 2024-03-25 08:45 | CM.NOTE ---
Rounds made with Dr. Goss, pt still requiring oxygen at this time. No discharge to home. Dr. Salomon will consult for further recommendations.
--- NOTE | 2024-03-25 08:49 | CM.NOTE ---
Discussed with pt about self pay. Pt is true self pay. Pt verbalizes he received paperwork and has filled out for billing office.
[2024-03-25] MEDS: METHYLPREDNISOLONE SOD SUCC PF 125 MG/2 ML VIAL 60 MG IVP ×3 (09:13→19:42)
[2024-03-25] MEDS: GUAIFENESIN 600 MG TAB.ER.12H 1200 MG PO ×2 (09:13→19:42)
[2024-03-25] MEDS: AZITHROMYCIN 500 MG in 0.9 % SODIUM CHLORIDE 250 ML 250 MG IV (09:14)
--- NOTE | 2024-03-25 10:31 | SWNOTE1 ---
Pt is on oxygen at hospital, 4 liters. Does not wear home oxygen. Pt does not have insurance and it will be out of pocket.
[2024-03-25] MEDS: IPRATROPIUM BROMIDE 0.5 MG/2.5 ML VIAL.NEB IH ×3 (12:00→20:24)
[2024-03-25] MEDS: LEVALBUTEROL HCL 0.63 MG/3 ML VIAL.NEB IH ×3 (12:00→20:24)
--- NOTE | 2024-03-25 20:24 | RESP.RT ---
Pt refused vest at this time. Pt stated he was very tired. PEP done.
[2024-03-26] VITALS (11 sets, daily range): BP systolic 123–137; BP diastolic 79–105; PULSE 70–105; TEMP 36.6–36.8; O2SAT 91–96
[2024-03-26] MEDS: METHYLPREDNISOLONE SOD SUCC PF 125 MG/2 ML VIAL 60 MG IVP ×2 (03:06→08:19)
[2024-03-26] MEDS: PIPERACILLIN SODIUM/TAZOBACTAM 3.375 GM in 0.9 % SODIUM CHLORIDE 50 ML IV (03:06)
--- NOTE | 2024-03-26 04:31 | RESP.RT ---
pt refused HHN at this time
[2024-03-26 05:07] LABS: Basophils Absolute Auto 0.1 10^3/uL (0.0-0.1); Basophils Percent Auto 0.2 % (0.2-2.0); Hematocrit 39.7 % (42.0-54.0); Hemoglobin 13.3 g/dL (14.0-18.0); Immature Granulocytes Abs Auto 1.21 10^3/uL (0.00-0.03); Lymphocytes Absolute Auto 1.5 10^3/uL (1.2-3.8); Lymphocytes Percent Auto 5.1 % (20.5-60.0); Mean Corpuscular HGB Conc 33.5 g/dL (29.9-35.2); Mean Corpuscular Hemoglobin 28.9 pg (25.9-34.0); Mean Corpuscular Volume 86.3 fL (80.0-94.0); Mean Platelet Volume 9.7 fL (9.5-13.5); Monocytes Absolute Auto 1.4 10^3/uL (0.3-0.8); Monocytes Percent Auto 4.5 % (1.7-12.0); Neutrophils Percent Auto 86.2 % (43.0-75.0); Platelet Count 339 10^3/uL (150-450); Red Cell Distribution Width 14.3 % (11.0-15.0)
[2024-03-26 05:18] LABS: Anion Gap 12.3; BUN Creatinine Ratio 25.8; Calcium 8.7 mg/dL (8.5-10.1); Carbon Dioxide 28.9 mmol/L (21.0-32.0); Chloride 103 mmol/L (98-107); Estimated GFR (African America >60 (>=60 mL/min/1.73m^2); Estimated GFR (Non-African Ame >60 (>=60 mL/min/1.73m^2); Glucose 135 mg/dL (74-106); Potassium 4.2 mmol/L (3.5-5.1); Sodium 140 mmol/L (136-145)
[2024-03-26 05:35] LABS: White Blood Count 30.2 10^3/uL (4.0-11.0)
--- NOTE | 2024-03-26 05:41 | P.DS_ITS ---
DS: Providers Provider Date of admission: 03/23/24 10:11 Primary care physician: Non-Staff Physician, Consults: 03/23/24 11:12 Consult to Pharmacy Routine Consulting Provider: Reason for consultation: Please [place] me when Med Rec is Updated Has provider been notified: No 03/24/24 17:00 Consult to Pulmonology Routine Consulting Provider: Jonathan Saloomn Reason for consultation: failed tx pneumonia Has provider been notified: Yes DS: Diagnosis Discharge Diagnosis (1) Community acquired pneumonia: Qualifiers: Laterality: left Lung location: upper lobe of lung Qualified Code(s): J18.9 - Pneumonia, unspecified organism (2) Hypoxemia: (3) Pneumonia: Plan Admission findings: Acute hypoxia with O2 sat of 86%, sinus tachycardia's, leukocytosis secondary to left lower lobe pneumonia causing an acute exacerbation of COPD Acute exacerbation of COPD secondary to left lower lobe pneumonia-improving at the time of discharge Sinus tachycardia likely secondary to above-resolved at the time of discharge EKG with inferior wall mild ST elevation-BNP and high-sensitivity troponin were normal Insomnia-try doxepin, try to limit respiratory suppression Hyperglycemia secondary to steroids-continue steroids. Admission status: Patient treated with IV antibiotics, aerosols, steroids, he does have significant hypoxia will make patient inpatient status secondary to the severity of his hypoxia. Failed outpatient treatment. Medically necessary treatment likely to span 2 midnights. DS: Summary Hospital Course Hospital Course: Patient was seen in the outpatient setting and treated for acute bronchitis. Patient condition deteriorated had increasing cough and shortness of breath and presented to the emergency room found to have acute hypoxic respiratory failure requiring supplemental oxygen. Patient was placed on aerosol treatment steroids and antibiotics. The following morning his condition deteriorated significantly requiring Vapotherm. He was transferred back to the intensive care unit. ABG was completed with not showing significant CO2 retention. No major shifts in his acid-base balance. Antibiotics were changed at that point in time. Since that time he is improved. Able to wean off of supplemental oxygen. His tachycardia is improved. Did well overnight. The oxygen is weaned off overnight. And maintaining O2 sats greater than 90%. At this point he is medically improved. He can be discharged to home in improving condition. Medications see this. Follow-up with me in the office this week. Status at Discharge Overall status at discharge: patient is not back to baseline Time Spent with Patient Time attestation: Total time spent providing and/or coordinating discharge services: Time spent: greater than 30 minutes Exam Constitutional Vital Signs, click to edit/add: Last Vital Signs Temp 98.2 F 03/26/24 04:38 Pulse 70 03/26/24 04:40 Resp 18 03/26/24 04:38 BP 123/80 03/26/24 04:38 Pulse Ox 92 L 03/26/24 04:38 O2 Del Method Room Air 03/26/24 04:38 O2 Flow Rate 2 03/25/24 16:37 FiO2 40 03/25/24 05:00 Documenting provider has reviewed patient's vital signs: yes Common normals: apparent distress (Mild to moderate respiratory distress) Chest Common normals: inspection of chest abnormal Respiratory Common normals: no use of accessory muscles; abnormal respiratory effort (Secondary to cough) Effort & inspection: actively coughing; does not use accessory muscles Auscultation: rhonchi (Worse than previous day.); no wheezes and no egophony (Egophony resolved) Cardio Common normals: regular rhythm; irregular rate Rate: tachycardic GI Common normals: Normal to inspection, nondistended, normoactive bowel sounds present Back & Pelvis Common normals: no CVA tenderness Extremity Common normals: normal to inspection DS: Data Data Completed and Pending Labs on day of discharge: Labs from last 24 hours 03/26/24 03/25/24 03/24/24 04:50 04:57 06:46 WBC 30.2 H* 36.7 H* RBC 4.60 L 4.16 L Hgb 13.3 L 13.9 L Hct 39.7 L 37.3 L MCV 86.3 89.7 MCH 28.9 33.4 MCHC 33.5 37.3 H RDW 14.3 15.2 H Plt Count 339 345 MPV 9.7 9.9 Neut % (Auto) 86.2 H Lymph % (Auto) 5.1 L [place] % (Auto) 4.5 Eos % (Auto) 0.0 L Baso % (Auto) 0.2 Neut # (Auto) 26.0 H Lymph # (Auto) 1.5 [place] # (Auto) 1.4 H Eos # (Auto) 0.0 Baso # (Auto) 0.1 Abs Immat Gran (auto) 1.21 H Seg Neuts % (Manual) 94.0 H Lymphocytes % (Manual) 4.0 L Monocytes % (Manual) 2.0 Eosinophils % (Manual) 0.0 L Basophils % (Manual) 0.0 L Imm/Tot Granulo (auto) 4.0 H Neutrophils # (Manual) 34.49 H Lymphocytes # (Manual) 1.46 Monocytes # (Manual) 0.73 Eosinophils # (Manual) 0.00 Basophils # (Manual) 0.00 Sodium 140 140 Potassium 4.2 4.4 Chloride 103 103 Carbon Dioxide 28.9 27.5 Anion Gap 12.3 13.9 BUN 23.0 H 22.0 H Creatinine 0.89 0.97 Est GFR ( Amer) >60 >60 Est GFR (Non-Af Amer) >60 >60 BUN/Creatinine Ratio 25.8 22.7 Glucose 135 H 159 H Calcium 8.7 9.2 Total Bilirubin 0.2 Direct Bilirubin 0.1 AST 14 L ALT 36 Alkaline Phosphatase 93 Total Protein 7.0 Albumin 2.8 L Globulin 4.2 Albumin/Globulin Ratio 0.7 Preliminary micro results at discharge 03/23/24 08:44 Blood Culture Result 2 - Preliminary Blood NO GROWTH AT 36-48 HOURS. FINAL TO FOLLOW. 03/23/24 08:38 Blood Culture Result 1 - Preliminary Blood NO GROWTH AT 36-48 HOURS. FINAL TO FOLLOW. 03/24/24 04:30 Lower Respiratory Culture - Preliminary Sputum - Expectorated Sputum Discharge Plan Discharge Disposition: Home, Self-Care Condition: Good Discharge Medications: New prednisone 10 mg tablet 50 mg PO DAILY Qty: 47 0RF Rx Instructions: 5/day for 3 days. 4/day for 3 days, 3/day for 3 days, 2/day for 3 days, 1/day for 3 days, 1/2 /day for 4 days benzonatate 100 mg Capsule 200 mg PO Q8H PRN (Reason: Cough) Qty: 20 0RF amoxicillin-pot clavulanate 875-125 mg tablet 1 tab PO BID Qty: 20 0RF albuterol sulfate [Ventolin HFA] 90 mcg/actuation HFA aerosol inhaler 2 inh inhalation Q6H PRN (Reason: shortness of breath or wheezing) Qty: 8.5 11RF Print Language: Armenian Patient Instructions: Pneumonia (DC) Forms: Portal Instructions Follow Up Appointments: Fri. Kylah, 2023 at 1:45 pm [phone] Discharge Date/Time: 03/26/24 10:00
--- NOTE | 2024-03-26 06:00 | XR_ITS ---
The [address] [address] Patient Name: YUNIER ELAINE MRN: [id number] date: 1990 Sex: M Assigned Patient Location: ICU Current Patient Location: ICU Accession/Order Number: [id number] Exam Date: 03/26/2024 05:55 Report Date: 03/26/2024 07:09 At the request of: FLACA MARINELLI Procedure: XR chest 2V EXAMINATION: XR chest 2V HISTORY: pna COMPARISON: 03/24/2024 TECHNIQUE: PA and lateral FINDINGS: LUNGS: Progression of lingular infiltrate. The right lung is clear VASCULATURE: No increased pulmonary vasculature. PLEURA: No pneumothorax, effusion, or pleural thickening. CARDIAC: No cardiomegaly or cardiac silhouette abnormality. MEDIASTINUM: No visible mass or adenopathy. BONES: No fracture or visible bone lesion. OTHER: Negative. XR/XR chest 2V IMPRESSION: Progression of lingular pneumonia Electronically authenticated by: IVETTE HOOD Date: 03/26/2024 07:09
--- NOTE | 2024-03-26 07:37 | CM.NOTE ---
Rounds made with Dr. Goss, pt now on RA. VSS. Discussed with pt discharge to home today on oral antibiotics. Pt does not have PCP but decided to f/u with Dr. Goss as outpatient. Pt will have appt scheduled by ICU pathology secretary/transcriptionist prior to discharge.
[2024-03-26] MEDS: AZITHROMYCIN 500 MG in 0.9 % SODIUM CHLORIDE 250 ML 250 MG IV (08:16)
[2024-03-26] MEDS: GUAIFENESIN 600 MG TAB.ER.12H 1200 MG PO (08:19)
--- NOTE | 2024-03-28 15:49 | CM.DCFOLLOWU ---
Person spoke with: patient How are you feeling?well How is your pain?none Did you understand your discharge instructions?yes Do you have any questions about your discharge instructions?no Were you given any prescriptions at discharge?yes Were you able to get your prescriptions filled?yes Do you understand how to take your medications as ordered?yes Do you have any questions about your follow up appointment and do you plan to keep your follow up appointment? no questions, follow up tomorrow with PCP Is there anything else that you would like to discuss?no Questions/Comments/Concerns/Other: N/A
== END 2024-03-26 10:00 | disposition home or self-care (01) | DRG 871 ==
LOC: ER 08:41 → MS 10:17 → ICU 03-24 06:50
PROVIDERS: Admitting Provider Family Medicine; Emergency Provider Emergency Medicine; Visit Provider Family Medicine
DX: A41.9 Sepsis, unspecified organism (principal); J18.9 Pneumonia, unspecified organism; J96.01 Acute respiratory failure with hypoxia; J44.0 Chronic obstructive pulmonary disease with (acute) lower respiratory infection; J44.1 Chronic obstructive pulmonary disease with (acute) exacerbation; J45.21 Mild intermittent asthma with (acute) exacerbation; R65.20 Severe sepsis without septic shock; F17.210 Nicotine dependence, cigarettes, uncomplicated; R00.0 Tachycardia, unspecified; H92.02 Otalgia, left ear; G47.00 Insomnia, unspecified; R73.9 Hyperglycemia, unspecified; T38.0X5A Adverse effect of glucocorticoids and synthetic analogues, initial encounter; R94.31 Abnormal electrocardiogram [ECG] [EKG]
CPT/HCPCS: 36415; 36600; 71045; 71046; 71275; 80048; 80076; 82805; 83605; 83880; 84484; 85007; 85025; 85027; 87040; 87070; 87205; 87804; 87811; 93005; 94640; 94667; 94668; 94761; 94799; 96365; 96367; 96375; 99285; 99406; J0456; J0696; J2543; J2919; Q9967